=== PATIENT | female | born 1985 | race Caucasian/White ===

== ENCOUNTER 2021-02-26 09:27 | Emergency (ER) | payer OTHER ==
[~2021-02-26] VITALS: Ht 175.3 cm; Wt 124.7 kg
[~2021-02-26 09:27] MED LIST: NAPROSYN500 MG PO; NO HOME MEDS; PERCOCET 5-3251 EACH PO
[2021-02-26 10:35] LABS: ABSOLUTE NEUTROPHILS 7.8 thou/uL (1.4-8.2); BASOPHILS 0.4 % (0.0-2.0); EOSINOPHILS 1.3 % (0.0-3.0); HEMATOCRIT 39.4 % (37.0-47.0); HEMOGLOBIN 12.7 gm/dL (12.0-15.0); LYMPHOCYTES 14.6 % (24.0-44.0); MCH 28.1 pg (26.0-34.0); MCHC 32.3 g/dL (28.0-37.0); MONOCYTES 4.3 % (1.0-8.0); PLATELET COUNT 296 thou/uL (150-400); POLYS 79.4 % (36.0-66.0); RBC 4.53 mil/uL (4.20-5.00); RDW 13.8 % (10.5-14.5); WBC 9.8 thou/uL (4.0-11.0)
[2021-02-26 10:38] LABS: CALCIUM 9.1 mg/dL (8.5-10.1)
[2021-02-26 10:39] LABS: POTASSIUM 4.7 mmol/L (3.5-5.1)
[2021-02-26] MEDS ORDERED: ELIQUIS5 MG PO (12:06)
[2021-02-26 12:10] VITALS: BP 145/98
== END 2021-02-26 12:10 | disposition home or self-care (01) ==
LOC: ER 09:27
PROVIDERS: Emergency Medicine
DX: I82.422 Acute embolism and thrombosis of left iliac vein (principal)